=== PATIENT | male | born 1950 | race Caucasian/White ===

== ENCOUNTER → 2017-09-27 | Outpatient (CLI) | payer MEDICARE, MEDICAID ==
[~2017-09-27] MED LIST: ALBUAER3 IN; LISI-646 PO; SERT-275 PO; SIMV80TA73 PO
[2017-09-27 10:02] LABS: Urine Bacteria NONE SEEN /hpf (None Seen); Urine Blood TRACE /uL (Negative); Urine Mucus FEW (None Seen); Urine Specific Gravity 1.026 (1.001-1.035); Urine WBC 5 /hpf (0 - 3)
[2017-09-27 10:03] LABS: Basophils # (auto) 0 uL; Basophils % (auto) 0.5 % (0.0-2.0); Eosinophils # (auto) 0.2 uL; Eosinophils % (auto) 2.4 % (0.0-7.0); Hematocrit 50.8 % (41.0-53.0); Hemoglobin 17.3 g/dL (13.5-17.5); Lymphocytes # (auto) 2.9 uL; Lymphocytes % (auto) 33.8 % (10.0-50.0); Mean Corpuscular Hemoglobin 33.2 pg (28.0-32.0); Mean Corpuscular Hgb Conc. 34.1 g/dL (32.0-36.0); Mean Corpuscular Volume 97.5 fL (80.0-100.0); Monocytes # (auto) 0.8 uL; Monocytes % (auto) 9.4 % (0.0-12.0); Neutrophils # (auto) 4.6 uL; Neutrophils % (auto) 53.9 % (37.0-80.0); Platelet Count (auto) 305 10^3/uL (140-450); Red Blood Cells 5.21 10^6/uL (4.5-5.90); Red Cell Distribution Width 14.6 % (11.8-14.3); White Blood Cell 8.6 10^3/uL (4.4-10.8)
[2017-09-27 10:27] LABS: Albumin 3.6 g/dL (3.4-5.0); BUN/Creatinine Ratio 16.5; Bilirubin, Total 0.7 mg/dL (0.2-1.0); Calcium 9.2 mg/dL (8.5-10.1); Potassium 4.1 mmol/L (3.5-5.1); Total Protein 7.6 g/dL (6.4-8.2)
== END | disposition home or self-care (01) ==
LOC: LAB 09:23
PROVIDERS: ATTEND Family Medicine
DX: I10 Essential (primary) hypertension (principal); N40.0 Benign prostatic hyperplasia without lower urinary tract symptoms; N39.0 Urinary tract infection, site not specified; F17.200 Nicotine dependence, unspecified, uncomplicated; E78.5 Hyperlipidemia, unspecified
CPT/HCPCS: 36415; 80053; 80061; 81001; 84153; 85025

== ENCOUNTER 2017-10-18 10:31 | Emergency (ER) | payer MEDICAID, MEDICARE ==
[~2017-10-18] VITALS: Ht 175.3 cm; Wt 102.1 kg
[2017-10-18] MEDS ORDERED: SODIUM CHLORIDE 0.9% 1,000 ML IV ONE (11:28)
[2017-10-18] MEDS ORDERED: NALBUPHINE HCL 10 MG/1ml INJECTION IV ONE (11:30)
[2017-10-18] MEDS ORDERED: METOCLOPRAMIDE HCL 5MG/ml INJ 2ml VIAL IV ONE (11:30)
[2017-10-18 12:04] LABS: Basophils # (auto) 0 uL; Basophils % (auto) 0.3 % (0.0-2.0); Eosinophils # (auto) 0.1 uL; Eosinophils % (auto) 0.6 % (0.0-7.0); Hemoglobin 17.2 g/dL (13.5-17.5); Lymphocytes # (auto) 1.7 uL; Mean Corpuscular Hemoglobin 32.6 pg (28.0-32.0); Mean Corpuscular Hgb Conc. 33.1 g/dL (32.0-36.0); Mean Corpuscular Volume 98.5 fL (80.0-100.0); Monocytes # (auto) 0.8 uL; Monocytes % (auto) 6.7 % (0.0-12.0); Neutrophils # (auto) 9.3 uL; Neutrophils % (auto) 78.4 % (37.0-80.0); Nucleated Red Blood Cells % 0.1 %; Platelet Count (auto) 318 10^3/uL (140-450); Red Blood Cells 5.28 10^6/uL (4.5-5.90); Red Cell Distribution Width 14.2 % (11.8-14.3); White Blood Cell 11.8 10^3/uL (4.4-10.8)
[2017-10-18 12:20] LABS: Albumin 3.5 g/dL (3.4-5.0); BUN/Creatinine Ratio 16.9; Calcium 8.5 mg/dL (8.5-10.1); Potassium 3.7 mmol/L (3.5-5.1)
[2017-10-18 12:22] LABS: Bilirubin, Total 0.7 mg/dL (0.2-1.0); Total Protein 7.5 g/dL (6.4-8.2)
[2017-10-18] MEDS ORDERED: LABETALOL HCL 5 MG/ML ML 20ML VIAL IV ONE ×2 (12:22→12:30)
[2017-10-18] MEDS ORDERED: hydrALAZINE HCL 20 MG/ML VL IV ONE (13:00)
[2017-10-18 13:02] LABS: INR 0.96 (0.9-1.15); Partial Thromboplastin Time 25.8 sec (22.64-33.71); Prothrombin Time 10.5 sec (9.37-12.3)
[2017-10-18 13:46] VITALS: BP 153/88
== END 2017-10-18 14:16 | disposition short-term general hospital (02) ==
LOC: ER 10:31 → EDBD 10:31 → EDSEX 10:31 → ER 14:16
DX: I60.7 Nontraumatic subarachnoid hemorrhage from unspecified intracranial artery (principal); R73.9 Hyperglycemia, unspecified; I10 Essential (primary) hypertension; F17.210 Nicotine dependence, cigarettes, uncomplicated
CPT/HCPCS: 36415; 70450; 71045; 80053; 83735; 84443; 85025; 85610; 85730; 93005; 96374; 96375; 99291; J0360; J2300; J2765; J7030

== ENCOUNTER 2017-11-12 12:15 | Emergency (ER) | payer MEDICARE ==
[~2017-11-12] VITALS: Ht 175.3 cm; Wt 90.7 kg
[2017-11-12] MEDS ORDERED: HYDROcodone-ACET 10/325MG TAB PO ONE (13:00)
[2017-11-12 13:08] VITALS: BP 141/80
== END 2017-11-12 14:39 | disposition home or self-care (01) ==
LOC: ER 12:16
DX: G43.001 Migraine without aura, not intractable, with status migrainosus (principal); F17.210 Nicotine dependence, cigarettes, uncomplicated; E78.5 Hyperlipidemia, unspecified; I10 Essential (primary) hypertension
CPT/HCPCS: 70450; 93005

== ENCOUNTER 2018-02-15 06:04 | Day surgery (SDC) | payer MEDICARE ==
[2018-02-13 12:58] LABS: Basophils # (auto) 0 uL; Basophils % (auto) 0.3 % (0.0-2.0); Eosinophils # (auto) 0.2 uL; Eosinophils % (auto) 2.3 % (0.0-7.0); Hematocrit 47.9 % (41.0-53.0); Hemoglobin 16.1 g/dL (13.5-17.5); Lymphocytes # (auto) 2.9 uL; Lymphocytes % (auto) 34.6 % (10.0-50.0); Mean Corpuscular Hemoglobin 33.2 pg (28.0-32.0); Mean Corpuscular Hgb Conc. 33.6 g/dL (32.0-36.0); Mean Corpuscular Volume 98.8 fL (80.0-100.0); Monocytes # (auto) 0.7 uL; Monocytes % (auto) 8.6 % (0.0-12.0); Neutrophils # (auto) 4.6 uL; Neutrophils % (auto) 54.2 % (37.0-80.0); Nucleated Red Blood Cells % 0.1 %; Platelet Count (auto) 358 10^3/uL (140-450); Red Blood Cells 4.84 10^6/uL (4.5-5.90); Red Cell Distribution Width 14.3 % (11.8-14.3); White Blood Cell 8.4 10^3/uL (4.4-10.8)
[2018-02-13 13:13] LABS: INR 0.89 (0.9-1.15); Partial Thromboplastin Time 27.1 sec (23.78-33.04); Prothrombin Time 9.6 sec (9.27-12.13)
[2018-02-13 13:16] LABS: Albumin 3.5 g/dL (3.4-5.0); BUN/Creatinine Ratio 22.4; Bilirubin, Total 0.5 mg/dL (0.2-1.0); Calcium 8.7 mg/dL (8.5-10.1); Potassium 4.4 mmol/L (3.5-5.1); Total Protein 7.7 g/dL (6.4-8.2); Urine WBC 2154 /hpf (0 - 3); Urine WBC Clumps PRESENT /hpf (None Seen)
[2018-02-13 13:46] LABS: Urine Blood Trace /uL (Negative)
[2018-02-13 13:47] LABS: Urine Bacteria Moderate /hpf (None Seen)
[~2018-02-15] VITALS: Ht 175.3 cm; Wt 98.9 kg
[2018-02-15] MEDS ORDERED: ceFAZolin 1GM/50ML 50 ML IV ONE (07:10)
[2018-02-15] MEDS ORDERED: MIDAZOLAM HCL 1MG/1ML-2 ML VIAL ONE (07:37)
[2018-02-15] MEDS ORDERED: fentaNYL CITRATE 100 MCG/2 ML VL ONE (07:37)
[2018-02-15] MEDS ORDERED: ROCURONIUM 10MG/ML 10ML VIAL IV ONE (07:38)
[2018-02-15] MEDS ORDERED: PROPOFOL 10 MG/ML 20 ML IV ONE (07:38)
[2018-02-15] MEDS ORDERED: hydrALAZINE HCL 20 MG/ML VL IV PRN (08:30)
[2018-02-15] MEDS ORDERED: ePHEDrine SULFATE 50 MG/ML AMP IV PRN (08:30)
[2018-02-15] MEDS ORDERED: ONDANSETRON HCL 4 MG/2 ML VIAL IV ONE (08:30)
[2018-02-15] MEDS ORDERED: fentaNYL CITRATE 100 MCG/2 ML VL IV ONE (09:00)
[2018-02-15 09:20] VITALS: BP 137/86
== END 2018-02-15 09:26 | disposition home or self-care (01) ==
LOC: SUR 06:04
PROVIDERS: ATTEND Urology
DX: N35.9 Urethral stricture, unspecified (principal); I10 Essential (primary) hypertension; J44.9 Chronic obstructive pulmonary disease, unspecified; E78.00 Pure hypercholesterolemia, unspecified; K21.9 Gastro-esophageal reflux disease without esophagitis; F17.210 Nicotine dependence, cigarettes, uncomplicated; Z79.82 Long term (current) use of aspirin; Z79.899 Other long term (current) drug therapy; Z98.890 Other specified postprocedural states; Z68.32 Body mass index [BMI] 32.0-32.9, adult
CPT/HCPCS: 36415; 52276; 80053; 81001; 85025; 85610; 85730; C1769; J0690; J2250; J2704; J3010

== ENCOUNTER → 2018-03-22 | Outpatient (CLI) | payer MEDICARE | END | disposition home or self-care (01) | LOC: LAB 15:07 | PROVIDERS: ATTEND Urology | DX: N39.0 Urinary tract infection, site not specified (principal); Z87.891 Personal history of nicotine dependence | CPT/HCPCS: 87086; 87088; 87186 ==

== ENCOUNTER → 2018-04-06 | Outpatient (CLI) | payer MEDICARE | END | disposition home or self-care (01) | LOC: LAB 10:25 | PROVIDERS: ATTEND Urology | DX: N35.919 Unspecified urethral stricture, male, unspecified site (principal); Z79.899 Other long term (current) drug therapy | CPT/HCPCS: 87086; 87088; 87186 ==

== ENCOUNTER → 2018-04-26 | Outpatient (CLI) | payer MEDICARE | END | disposition home or self-care (01) | LOC: LAB 13:38 | PROVIDERS: ATTEND Urology | DX: N39.0 Urinary tract infection, site not specified (principal) | CPT/HCPCS: 87086 ==

== ENCOUNTER → 2018-05-17 | Outpatient (CLI) | payer MEDICARE ==
[2018-05-17 09:39] LABS: Basophils # (auto) 0.1 uL; Basophils % (auto) 0.7 % (0.0-2.0); Eosinophils # (auto) 0.2 uL; Eosinophils % (auto) 2.2 % (0.0-7.0); Hematocrit 47.2 % (41.0-53.0); Hemoglobin 15.8 g/dL (13.5-17.5); Lymphocytes % (auto) 34.2 % (10.0-50.0); Mean Corpuscular Hemoglobin 32.2 pg (28.0-32.0); Mean Corpuscular Hgb Conc. 33.5 g/dL (32.0-36.0); Mean Corpuscular Volume 95.9 fL (80.0-100.0); Monocytes # (auto) 0.9 uL; Monocytes % (auto) 10.1 % (0.0-12.0); Neutrophils # (auto) 4.6 uL; Neutrophils % (auto) 52.8 % (37.0-80.0); Platelet Count (auto) 328 10^3/uL (140-450); Red Blood Cells 4.92 10^6/uL (4.5-5.90); Red Cell Distribution Width 14.5 % (11.8-14.3); White Blood Cell 8.7 10^3/uL (4.4-10.8)
[2018-05-17 09:43] LABS: Urine Bacteria NONE SEEN /hpf (None Seen); Urine Blood 1+ /uL (Negative); Urine Hyaline Cast MOD /lpf (0 - 2); Urine Mucus FEW (None Seen); Urine Specific Gravity 1.021 (1.001-1.035); Urine WBC 3149 /hpf (0 - 3)
[2018-05-17 10:07] LABS: Potassium 4.1 mmol/L (3.5-5.1)
[2018-05-17 10:20] LABS: Albumin 3.3 g/dL (3.4-5.0); BUN/Creatinine Ratio 18.4; Bilirubin, Total 0.5 mg/dL (0.2-1.0); Total Protein 7.3 g/dL (6.4-8.2)
== END | disposition home or self-care (01) ==
LOC: LAB 09:14
PROVIDERS: ATTEND Nurse Practitioner
DX: E78.5 Hyperlipidemia, unspecified (principal)
CPT/HCPCS: 36415; 80053; 80061; 81001; 85025

== ENCOUNTER 2018-05-21 01:39 | Emergency (ER) | payer MEDICARE ==
[~2018-05-21] VITALS: Ht 182.9 cm; Wt 104.3 kg
[2018-05-21 02:47] LABS: Basophils # (auto) 0 uL; Basophils % (auto) 0.5 % (0.0-2.0); Eosinophils # (auto) 0.2 uL; Eosinophils % (auto) 2.4 % (0.0-7.0); Hematocrit 45.9 % (41.0-53.0); Hemoglobin 15.3 g/dL (13.5-17.5); Lymphocytes # (auto) 2.5 uL; Lymphocytes % (auto) 31.2 % (10.0-50.0); Mean Corpuscular Hgb Conc. 33.4 g/dL (32.0-36.0); Mean Corpuscular Volume 95.7 fL (80.0-100.0); Monocytes # (auto) 0.8 uL; Monocytes % (auto) 10.1 % (0.0-12.0); Neutrophils # (auto) 4.5 uL; Neutrophils % (auto) 55.8 % (37.0-80.0); Platelet Count (auto) 294 10^3/uL (140-450); Red Cell Distribution Width 14.6 % (11.8-14.3)
[2018-05-21 03:11] LABS: INR 0.87 (0.9-1.15); Partial Thromboplastin Time 27.5 sec (23.78-33.04); Prothrombin Time 9.4 sec (9.27-12.13)
[2018-05-21 03:29] LABS: Alanine Aminotransferase 23 U/L (16-61); Albumin 3.2 g/dL (3.4-5.0); Anion Gap 4 (5-15); Aspartate Aminotransferase 12 U/L (15-37); Blood Urea Nitrogen 21 mg/dL (7-18); Calcium 8.6 mg/dL (8.5-10.1); Carbon Dioxide 24 mmol/L (21-32); Chloride 111 mmol/L (98-107); Glucose 100 mg/dL (74-106); Magnesium 2.3 mg/dL (1.6-2.6); Sodium 139 mmol/L (136-145)
[2018-05-21 03:34] LABS: Alkaline Phosphatase 94 U/L (45-117); Bilirubin, Total 0.2 mg/dL (0.2-1.0); GFR African American 144 mL/min; GFR Non-African American 119 mL/min; Total Protein 6.9 g/dL (6.4-8.2)
[2018-05-21 04:46] VITALS: BP 158/93
== END 2018-05-21 04:47 | disposition home or self-care (01) ==
LOC: EDBD 01:39 → ER 01:41
DX: I67.1 Cerebral aneurysm, nonruptured (principal); F17.210 Nicotine dependence, cigarettes, uncomplicated; I10 Essential (primary) hypertension; E78.5 Hyperlipidemia, unspecified; H54.8 Legal blindness, as defined in USA; Z87.440 Personal history of urinary (tract) infections
CPT/HCPCS: 36415; 70450; 80053; 83735; 83880; 84484; 85025; 85379; 85610; 85730

== ENCOUNTER → 2018-06-07 | Outpatient (CLI) | payer MEDICARE ==
[2018-06-07 15:26] LABS: Urine Bacteria MANY /hpf (None Seen); Urine Blood 1+ /uL (Negative); Urine Mucus FEW (None Seen); Urine Specific Gravity 1.024 (1.001-1.035); Urine WBC 131 /hpf (0 - 3)
== END | disposition home or self-care (01) ==
LOC: LAB 14:52
PROVIDERS: ATTEND Nurse Practitioner
DX: N39.0 Urinary tract infection, site not specified (principal)
CPT/HCPCS: 81001; 87086; 87088; 87186

== ENCOUNTER 2018-06-13 17:16 | Emergency (ER) | payer MEDICARE ==
[~2018-06-13] VITALS: Ht 175.3 cm; Wt 100.7 kg
[2018-06-13 17:27] VITALS: BP 165/77
[2018-06-13 18:25] LABS: Urine Amorphous Crystal FEW /hpf (None Seen); Urine Bacteria MANY /hpf (None Seen); Urine Blood TRACE /uL (Negative); Urine WBC 109 /hpf (0 - 3)
[2018-06-13 18:25] LABS: Basophils # (auto) 0 uL; Basophils % (auto) 0.4 % (0.0-2.0); Eosinophils # (auto) 0.2 uL; Eosinophils % (auto) 2.6 % (0.0-7.0); Hematocrit 48.3 % (41.0-53.0); Hemoglobin 16.1 g/dL (13.5-17.5); Lymphocytes # (auto) 2.5 uL; Lymphocytes % (auto) 28.9 % (10.0-50.0); Mean Corpuscular Hemoglobin 32.4 pg (28.0-32.0); Mean Corpuscular Hgb Conc. 33.3 g/dL (32.0-36.0); Mean Corpuscular Volume 97.4 fL (80.0-100.0); Neutrophils # (auto) 4.8 uL; Neutrophils % (auto) 56.1 % (37.0-80.0); Nucleated Red Blood Cells % 0.1 %; Platelet Count (auto) 365 10^3/uL (140-450); Red Blood Cells 4.95 10^6/uL (4.5-5.90); Red Cell Distribution Width 14.8 % (11.8-14.3); White Blood Cell 8.5 10^3/uL (4.4-10.8)
[2018-06-13 18:31] LABS: Alanine Aminotransferase 23 U/L (16-61); Albumin 3.4 g/dL (3.4-5.0); Anion Gap 8 (5-15); Aspartate Aminotransferase 13 U/L (15-37); BUN/Creatinine Ratio 18.2; Blood Urea Nitrogen 20 mg/dL (7-18); Calcium 8.6 mg/dL (8.5-10.1); Carbon Dioxide 28 mmol/L (21-32); Chloride 109 mmol/L (98-107); GFR African American 85 mL/min; GFR Non-African American 71 mL/min; Glucose 121 mg/dL (74-106); Potassium 5.1 mmol/L (3.5-5.1); Sodium 145 mmol/L (136-145)
[2018-06-13 18:37] LABS: Alkaline Phosphatase 105 U/L (45-117); Bilirubin, Total 0.2 mg/dL (0.2-1.0); Total Protein 7.3 g/dL (6.4-8.2)
== END 2018-06-13 20:01 | disposition left against medical advice (07) ==
LOC: ER 17:19
DX: N39.0 Urinary tract infection, site not specified (principal); Z53.21 Procedure and treatment not carried out due to patient leaving prior to being seen by health care provider
CPT/HCPCS: 36415; 80053; 81001; 84484; 85025

== ENCOUNTER → 2018-07-31 | Outpatient (CLI) | payer MEDICARE | END | disposition home or self-care (01) | LOC: LAB 12:30 | PROVIDERS: ATTEND Urology | DX: N39.0 Urinary tract infection, site not specified (principal) | CPT/HCPCS: 87086 ==

== ENCOUNTER → 2018-08-15 | Outpatient (CLI) | payer MEDICARE ==
[2018-08-15 08:44] LABS: Urine Amorphous Crystal FEW /hpf (None Seen); Urine Bacteria NONE SEEN /hpf (None Seen); Urine Blood Negative /uL (Negative); Urine Specific Gravity 1.013 (1.001-1.035); Urine WBC 2 /hpf (0 - 3)
[2018-08-15 08:45] LABS: Basophils # (auto) 0 uL; Basophils % (auto) 0.3 % (0.0-2.0); Eosinophils # (auto) 0.2 uL; Eosinophils % (auto) 1.6 % (0.0-7.0); Hematocrit 45.6 % (41.0-53.0); Hemoglobin 15.2 g/dL (13.5-17.5); Lymphocytes # (auto) 4.6 uL; Mean Corpuscular Hemoglobin 32.7 pg (28.0-32.0); Mean Corpuscular Hgb Conc. 33.4 g/dL (32.0-36.0); Monocytes # (auto) 1.3 uL; Monocytes % (auto) 9.4 % (0.0-12.0); Neutrophils # (auto) 7.4 uL; Neutrophils % (auto) 54.7 % (37.0-80.0); Nucleated Red Blood Cells % 0.1 %; Platelet Count (auto) 394 10^3/uL (140-450); Red Blood Cells 4.65 10^6/uL (4.5-5.90); Red Cell Distribution Width 15.1 % (11.8-14.3); White Blood Cell 13.5 10^3/uL (4.4-10.8)
[2018-08-15 09:01] LABS: Albumin 3.4 g/dL (3.4-5.0); BUN/Creatinine Ratio 22.6; Calcium 9.8 mg/dL (8.5-10.1); Potassium 4.9 mmol/L (3.5-5.1)
[2018-08-15 09:08] LABS: Bilirubin, Total 0.4 mg/dL (0.2-1.0); Total Protein 7.2 g/dL (6.4-8.2)
== END | disposition home or self-care (01) ==
LOC: LAB 08:25
PROVIDERS: ATTEND Nurse Practitioner
DX: E78.5 Hyperlipidemia, unspecified (principal)
CPT/HCPCS: 36415; 80053; 80061; 81001; 84443; 85025

== ENCOUNTER → 2019-03-19 | Outpatient (CLI) | payer MEDICARE ==
[2019-03-19 09:31] LABS: Basophils # (auto) 0.1 uL; Basophils % (auto) 0.8 % (0.0-2.0); Eosinophils # (auto) 0.2 uL; Eosinophils % (auto) 2.5 % (0.0-7.0); Hematocrit 46.2 % (41.0-53.0); Hemoglobin 15.5 g/dL (13.5-17.5); Lymphocytes # (auto) 2.2 uL; Lymphocytes % (auto) 26.3 % (10.0-50.0); Mean Corpuscular Hgb Conc. 33.5 g/dL (32.0-36.0); Mean Corpuscular Volume 95.5 fL (80.0-100.0); Monocytes # (auto) 0.7 uL; Monocytes % (auto) 8.8 % (0.0-12.0); Neutrophils # (auto) 5.2 uL; Neutrophils % (auto) 61.6 % (37.0-80.0); Nucleated Red Blood Cells % 0.1 %; Platelet Count (auto) 325 10^3/uL (140-450); Red Blood Cells 4.84 10^6/uL (4.5-5.90); Red Cell Distribution Width 16.3 % (11.8-14.3); White Blood Cell 8.5 10^3/uL (4.4-10.8)
[2019-03-19 09:48] LABS: INR < 0.93 (0.9-1.15); Partial Thromboplastin Time 25.4 sec (23.64-32.05)
[2019-03-19 10:09] LABS: BUN/Creatinine Ratio 19.1; Calcium 9.1 mg/dL (8.5-10.1); Potassium 4.2 mmol/L (3.5-5.1)
== END | disposition home or self-care (01) ==
LOC: LAB 09:20
DX: Z01.89 Encounter for other specified special examinations (principal); D68.9 Coagulation defect, unspecified; I67.1 Cerebral aneurysm, nonruptured; Z79.02 Long term (current) use of antithrombotics/antiplatelets
CPT/HCPCS: 36415; 80048; 85025; 85610; 85730

== ENCOUNTER 2019-07-18 13:26 | Inpatient (IN) | payer BC, MEDICARE ==
[~2019-07-18] VITALS: Ht 175.3 cm; Wt 100.5 kg
[2019-07-18 14:10] LABS: Basophils # (auto) 0.1 uL; Basophils % (auto) 0.6 % (0.0-2.0); Eosinophils # (auto) 0.2 uL; Eosinophils % (auto) 1.7 % (0.0-7.0); Hemoglobin 16.5 g/dL (13.5-17.5); Lymphocytes # (auto) 2.1 uL; Lymphocytes % (auto) 23.4 % (10.0-50.0); Mean Corpuscular Hemoglobin 32.5 pg (28.0-32.0); Mean Corpuscular Hgb Conc. 33.6 g/dL (32.0-36.0); Mean Corpuscular Volume 96.8 fL (80.0-100.0); Monocytes # (auto) 0.9 uL; Monocytes % (auto) 10.3 % (0.0-12.0); Neutrophils # (auto) 5.7 uL; Platelet Count (auto) 333 10^3/uL (140-450); Red Blood Cells 5.07 10^6/uL (4.5-5.90); Red Cell Distribution Width 15.2 % (11.8-14.3)
[2019-07-18 14:22] LABS: Albumin 3.5 g/dL (3.4-5.0); Anion Gap 5 (5-15); Blood Alcohol < 3.0 mg/dL (0-5); Blood Urea Nitrogen 15 mg/dL (7-18); Calcium 9.7 mg/dL (8.5-10.1); Carbon Dioxide 26 mmol/L (21-32); Chloride 107 mmol/L (98-107); Glucose 103 mg/dL (74-106); Magnesium 2.2 mg/dL (1.6-2.6); Potassium 3.7 mmol/L (3.5-5.1); Sodium 138 mmol/L (136-145)
[2019-07-18 14:27] LABS: Alanine Aminotransferase 19 U/L (16-61); Alkaline Phosphatase 95 U/L (45-117); Aspartate Aminotransferase 14 U/L (15-37); Bilirubin, Total 0.4 mg/dL (0.2-1.0); GFR African American 95 mL/min; GFR Non-African American 79 mL/min; Total Protein 7.8 g/dL (6.4-8.2)
[2019-07-18] MEDS ORDERED: LACTULOSE 20Gm/30ML SOLN PO PRN (16:30)
[2019-07-18] MEDS ORDERED: LABETALOL HCL 5 MG/ML ML 20ML VIAL IV PRN (16:30)
[2019-07-18] MEDS ORDERED: MORPHINE SULF INJ 2 MG/ML SYRINGE 1ML IV PRN (16:30)
[2019-07-18] MEDS ORDERED: traMADol HCL 50 MG TAB PO PRN (16:30)
[2019-07-18] MEDS ORDERED: NITROGLYCERIN 0.4 MG SL TAB SL PRN (16:30)
[2019-07-18] MEDS ORDERED: PROMETHAZINE HCL 25 MG/ML 1ML IV PRN (16:30)
[2019-07-18] MEDS ORDERED: ASPirin 81 mg TAB PO ONE (16:45)
[2019-07-18 18:22] LABS: Urine Bacteria NONE SEEN /hpf (None Seen); Urine Blood Negative /uL (Negative); Urine Mucus FEW (None Seen); Urine Specific Gravity 1.016 (1.001-1.035); Urine WBC 2 /hpf (0 - 3)
[2019-07-18 18:32] LABS: Alcohol, Urine < 3.0 mg/dL (0-5); Amphetamine Screen, Urine NEGATIVE (NEGATIVE); Barbiturate Scree,Urine NEGATIVE (NEGATIVE); Benzodiazephine Screen, Urine NEGATIVE (NEGATIVE); Cannabinoid Screen, Urine NEGATIVE (NEGATIVE); Cocaine Screen, Urine NEGATIVE (NEGATIVE); Opiate Scree,Urine NEGATIVE (NEGATIVE); Phencyclidine Screen, Urine NEGATIVE (NEGATIVE)
[2019-07-18] MEDS: ALBUTEROL SULF 2.5 MG/0.5ML(0.5%) NEB SOLN NEB SCH (19:05)
[2019-07-18 20:25] VITALS: BP 145/70
--- NOTE | 2019-07-18 20:25 | NUR ---
Telemetry admit from ER ROWEAN HO admitted to Telemetry unit. Patient oriented to ABDOULAYE BUTT O[facility], primary RN, unit, room, bed, and unit policies regarding patient care and visiting hours. Patient now on continuous telemetry monitoring, tele box #51 and telemetry reading on arrival to unit is sinus rhythm. Patient weighed by bedscale and encouraged to call if they need something. All questions and concerns addressed, patient verbalized understanding. Bed in lowest locked position, call light within reach, side rails up x2, fall precautions in place. Will continue to monitor Q1hr and PRN.
--- NOTE | 2019-07-18 20:45 | NUR ---
AMA to smoke ROWENA HO states they want to leave the floor Against Medical Advice (AMA) to go outside and smoke. Patient encouraged to stay on floor and not smoke. Patient advised of the risks and benefits of leaving AMA to smoke. Patient verbalized understanding and signed required AMA form. Patient informed to be back in 20 minutes, patient verbalized understanding.
--- NOTE | 2019-07-18 21:15 | NUR ---
Spoke with hospitalist Spoke with hospitalist in regards to patient complaining oh heart burn. Per hospitalist will take a look at patient's chart. Continue care.
[2019-07-18 22:00] VITALS: BP 145/70
[2019-07-18] MEDS: CALCIUM CARB 500 MG CHEW TAB PO PRN (22:12)
[2019-07-18] MEDS: ATORVASTATIN 20 MG TAB PO SCH (22:12)
[2019-07-19] MEDS: ALBUTEROL SULF 2.5 MG/0.5ML(0.5%) NEB SOLN NEB SCH ×4 (00:57→19:28)
--- NOTE | 2019-07-19 01:06 | NUR ---
ER CALLED NEURO CONSULT WITH DR. CLARK.
[2019-07-19 03:49] VITALS: BP 145/70
[2019-07-19 05:00] VITALS: BP 141/78
--- NOTE | 2019-07-19 07:45 | NUR ---
OPENING SHIFT NOTE: PATIENT RESTING IN BED. A/OX4. PATIENT ABLE TO GRASP BOTH HANDS FIRMLY, SLIGHTLY LESS STRENGTH NOTED IN LEFT HAND GRASP, WELL LEFT LEG DECREASED IN RESISTANCE. PATIENT SPEECH CLEAR, VERY MILD STUTTERING NOTED, PATIENT REPORTS SYMPTOMS GETTING BETTER. PATIENT UPDATED ON PLAN OF CARE, AND IS COMPLIANT AND ACTIVE IN LEARNING/PARTICIPATION. RESPIRATIONS EVEN AND UNLABORED. FALL PRECAUTIONS IN PLACE, SMOKING CESSATION EDUCATION GIVEN. CALL LIGHT WITHIN REACH. WILL CONTINUE TO MONITOR.
[2019-07-19 09:00] VITALS: BP_SYST 107; BP_SYST 129; BP_DIAS 73; BP_DIAS 95
[2019-07-19] MEDS ORDERED: LORazepam 2MG/ML-1ML VIAL IV PRN (09:15)
[2019-07-19] MEDS: ASPirin 81 mg TAB PO SCH (10:27)
[2019-07-19] MEDS: SERTRALINE HCL 50 MG TAB PO SCH (10:27)
[2019-07-19] MEDS: ENOXAPARIN SOD 40 MG/0.4 ML SYRINGE SC SCH (10:29)
[2019-07-19] MEDS: LISINOPRIL 20 MG TAB PO SCH (10:29)
--- NOTE | 2019-07-19 11:00 | NUR ---
PATIENT'S FAMILY BROUGHT IN STENT/BRAIN COIL ID. COPIED MADE AND PLACED IN HARD CHART. THIS RN LEFT MRI VOICEMAIL.
--- NOTE | 2019-07-19 12:15 | NUR ---
MD CHEYENNE FERREIRA.
[2019-07-19 13:00] VITALS: BP 128/72
--- NOTE | 2019-07-19 13:45 | NUR ---
PATIENT STENT INFORMATION GIVEN TO DONG IN MRI. STENT INFORMATION TO BE OBTAINED, HOWEVER COILING RECORDS ARE FROM MARNE. WILL INFORM MD OF SITUATION.
--- NOTE | 2019-07-19 13:49 | NUR ---
MD QUINN MADE AWARE OF MRI PROCEDURE TO BE CANCELLED DUE TO BRAIN COILING. MD QUINN INFORMED THIS RN THAT PATIENT IS WALKING AND SYMPTOMS ARE NOT PROGRESSING, TO COMMUNICATE WITH MD CLARK ON PLAN OF CARE.
[2019-07-19] MEDS: ACETAMINOPHEN 500 MG TAB PO PRN (15:56)
--- NOTE | 2019-07-19 15:57 | NUR ---
PATIENT REPORTING MILD HEADACHE. TYLENOL ADMINISTERED ORDERED.
[2019-07-19 17:00] VITALS: BP 140/83
--- NOTE | 2019-07-19 18:13 | NUR ---
PATIENT AMA TO SMOKE.
[2019-07-19] MEDS: CALCIUM CARB 500 MG CHEW TAB PO PRN (20:51)
[2019-07-19] MEDS: ATORVASTATIN 20 MG TAB PO SCH (20:52)
[2019-07-19 23:23] VITALS: BP 136/75
[2019-07-20] MEDS: ALBUTEROL SULF 2.5 MG/0.5ML(0.5%) NEB SOLN NEB SCH ×4 (00:33→19:00)
--- NOTE | 2019-07-20 01:20 | NUR ---
CARE ENDORSED TO NOMI TOWNSEND.
[2019-07-20 05:20] VITALS: BP 144/88
[2019-07-20] MEDS ORDERED: SODIUM CHLORIDE 0.9 % NEB SOLN 3ML NEB ONE (05:40)
[2019-07-20 09:00] VITALS: BP 140/68
[2019-07-20] MEDS: SERTRALINE HCL 50 MG TAB PO SCH (10:00)
--- NOTE | 2019-07-20 11:02 | NUR ---
Dr. Issa At bedside discussing POC with patient. possible D/C tomorrow after Dr. Perez follows up with patient.
[2019-07-20] MEDS ORDERED: SERTRALINE HCL 50 MG TAB PO ONE (11:15)
[2019-07-20] MEDS: ASPirin 81 mg TAB PO SCH (11:24)
[2019-07-20] MEDS: LISINOPRIL 20 MG TAB PO SCH (11:25)
[2019-07-20] MEDS: ENOXAPARIN SOD 40 MG/0.4 ML SYRINGE SC SCH (11:26)
--- NOTE | 2019-07-20 11:41 | NUR ---
EEG- unable to complete exam due to artifacts. Patient was restless and stated that he had back pain.
[2019-07-20 12:58] VITALS: BP 134/85
--- NOTE | 2019-07-20 15:16 | NUR ---
Assumed pt Care Assumed pt care from Zoë. Pt is a/ox4 with no s/s of distress or SOB. Pt is currently laying in bed with no complaints at this time. Safety measures maintained with call light within reach, bed in lowest position and side rails up. Will continue to monitor for changes q1hr and prn.
[2019-07-20 17:00] VITALS: BP 146/76
--- NOTE | 2019-07-20 19:45 | NUR ---
Opening Shift Note Assumed care of patient, AOX4. No S/S of distress/SOB. Fall and safety precautions in place. Call light within reach and able to use. Instructed on POC and to call for assist PRN, will continue to monitor for changes Q1hr and PRN.
[2019-07-20] MEDS: ATORVASTATIN 20 MG TAB PO SCH (21:20)
[2019-07-20] MEDS: CALCIUM CARB 500 MG CHEW TAB PO PRN (21:21)
--- NOTE | 2019-07-20 21:36 | NUR ---
PT OFF UNIT PATIENT EDUCATED OF RISKS/CONSEQUENCES OF LEAVING AMA OFF UNIT. PATIENT VERBALIZED UNDERSTANDING AND STATES, "YEAH I KNOW, I'LL BE OKAY. I WON'T BE TOO LONG AND I KNOW HOW TO GET BACK UP". PATIENT LEAVING AT THIS TIME. WILL CONTINUE TO MONITOR.
--- NOTE | 2019-07-20 21:49 | NUR ---
PATIENT RETURNS TO UNIT PATIENT RETURNS TO UNIT AT THIS TIME. PATIENT NOW RESTING IN BED. BED LOCKED IN LOWEST POSITION AND SIDE RAILS UP X2. WILL CONTINUE TO MONITOR.
[2019-07-20] MEDS: ACETAMINOPHEN 500 MG TAB PO PRN (22:01)
[2019-07-20 22:38] VITALS: BP 153/72
--- NOTE | 2019-07-20 23:30 | NUR ---
TELE CALL RECEIVED NOTIFICATION THAT DIRECTOR OF MARKETING OPERATIONS CALLED REGARDING ABNORMAL CARDIAC RHYTHM, HEART RATE GOING FROM 49 TO 140'S AFIB. UPON ENTERING ROOM, PATIENT ASLEEP, AWAKEN TO VOICE. DENIES CHEST PAIN, NAUSEA, ANY OTHER S/S. VITALS TAKEN BP 120/54; HEART RATE 55; OXYGEN SATURATION 96% ON ROOM AIR. PATIENT PLACED ON 2L NC OXYGEN. EKG TAKEN OF PATIENT READS SINUS RHYTHM. WILL NOTIFY ON-CALL HOSPITALIST. Addendum: 07/21/19 at 0023 by KATELIN GALINDO RN RN WRONG PATIENT
--- NOTE | 2019-07-21 00:02 | NUR ---
PT REFUSED [place], NO SOB NOTED
[2019-07-21 06:04] VITALS: BP 142/79
[2019-07-21] MEDS: ALBUTEROL SULF 2.5 MG/0.5ML(0.5%) NEB SOLN NEB SCH ×5 (06:33→22:49)
--- NOTE | 2019-07-21 07:29 | NUR ---
Opening Note Assumed pt care from NOC nurse. Pt is a/ox4 with no s/s of distress or SOB. Pt is currently laying in bed with no complaints at this time. Discussed POC with pt and pending neurology clearance and possible d/c; pt verbalized understanding. Safety measures maintained with call light within reach, bed in lowest position and side rails up. Will continue to monitor for changes q1hr and prn.
[2019-07-21 08:43] VITALS: BP 138/81
[2019-07-21] MEDS: SERTRALINE HCL 50 MG TAB PO SCH (08:49)
[2019-07-21] MEDS: ASPirin 81 mg TAB PO SCH (08:49)
[2019-07-21] MEDS: ENOXAPARIN SOD 40 MG/0.4 ML SYRINGE SC SCH (08:50)
[2019-07-21] MEDS: LISINOPRIL 20 MG TAB PO SCH (08:50)
--- NOTE | 2019-07-21 10:56 | NUR ---
Dr Issa at Bedside MD to see pt. requests that Dr Perez f/u and read EEG on pt for clearance to d/c. Per MD, if Neuro clears pt, to call him for d/c orders. Will implement and continue to monitor.
--- NOTE | 2019-07-21 11:31 | NUR ---
EEG Update Per ct mri technologist, the pt did not complete the EEG due to artifact and restlessness. Spoke with Dr Issa about the test not being complete; requests that the test be complete today for Dr Perez to interpret. Will call EEG techs to inform.
--- NOTE | 2019-07-21 11:40 | NUR ---
senior manufacturing engineer at Bedside Tech at bedside. Pt aware of need to stay still for exam and agreed to stay still. Addendum: 07/21/19 at 1237 by SARA RÍOS RN RN EEG COMPLETE. Tech stated that they were able to complete the test and that he would call Dr Perez for a read. Will continue to monitor.
--- NOTE | 2019-07-21 12:41 | NUR ---
EEG- ELECTROENCEPHALOGRAM COMPLETED ON 07/21/2019.
[2019-07-21 13:00] VITALS: BP 143/75
--- NOTE | 2019-07-21 13:17 | NUR ---
Nutrition Assessment Notes Please refer to link for full assessment notes Est energy needs: [id number] kcals (23-25 kcal/kgBW) Est protein needs: 72-90 gms/day (0.8-1.0 gm/kgBW) Will continue to monitor and reassess prn Addendum: 07/21/19 at [address] Amended: Links added.
[2019-07-21 16:58] VITALS: BP 146/78
--- NOTE | 2019-07-21 19:10 | NUR ---
DR CLARK AT BEDSIDE
--- NOTE | 2019-07-21 19:30 | NUR ---
Opening Shift Note Assumed care of patient, AOX4. No S/S of distress/SOB or pain. Fall and safety precautions in place. Call light within reach and able to use. Instructed on plan of care and to call for assist PRN. Patient in agreement and verbalized understanding. Will continue to monitor for changes Q1hr and PRN.
--- NOTE | 2019-07-21 21:02 | NUR ---
PATIENT OFF UNIT RISKS/CONSEQUENCES DISCUSSED OFF WALKING OFF UNIT. PATIENT VERBALIZED UNDERSTANDING AND CONTINUES TO WISH TO GO OFF UNIT. AMA SIGNED IN CHART. WILL CONTINUE TO MONITOR.
--- NOTE | 2019-07-21 21:13 | NUR ---
PATIENT RETURNS TO UNIT PATIENT RETURNS TO BED IN ROOM ON UNIT AT THIS TIME. PATIENT NOW RESTING IN BED. BED LOCKED IN LOWEST POSITION WITH SIDE RAILS UP X2. WILL CONTINUE TO MONITOR.
--- NOTE | 2019-07-21 22:00 | NUR ---
HIGH BP BP RIGHT ARM SEMI-FOWLERS 173/81 MM HG. PATIENT GIVEN TYLENOL FOR 5/10 CHRONIC HEADACHE (SEE EMAR); IN NO OTHER S/S OF DISTRESS AT THIS TIME. PATIENT EDUCATED ON BLOOD PRESSURE AND REASON FOR MEDICATION ADMINISTRATION (SEE EMAR). HEAD OF THE BED LOWERED. WILL CONTINUE TO MONITOR.
[2019-07-21] MEDS: ATORVASTATIN 20 MG TAB PO SCH (22:03)
[2019-07-21] MEDS: CALCIUM CARB 500 MG CHEW TAB PO PRN (22:04)
[2019-07-21] MEDS: ACETAMINOPHEN 500 MG TAB PO PRN (22:04)
--- NOTE | 2019-07-21 23:00 | NUR ---
BP RECHECK BP 133/59; HEART RATE 68. PATIENT IN NO S/S OF DISTRESS, RESTING IN BED. WILL CONTINUE TO MONITOR.
[2019-07-22 05:34] VITALS: BP 142/82
[2019-07-22] MEDS: ALBUTEROL SULF 2.5 MG/0.5ML(0.5%) NEB SOLN NEB SCH ×2 (06:50→11:52)
--- NOTE | 2019-07-22 08:35 | NUR ---
OPENING SHIFT NOTE: PATIENT RESTING IN BED. A/OX4. PATIENT SPEECH CLEAR. UPDATED ON PLAN OF CARE FOR REPEAT HEAD CT AND ECHO RESULTS PENDING. RESPIRATIONS EVEN AND UNLABORED. FALL PRECAUTIONS IN PLACE, SMOKING CESSATION EDUCATION GIVEN. PATIENT REPORTS HE IS OUT OF CIGARETTES AND IS NOT GOING TO BUY ANOTHER PACK. CALL LIGHT WITHIN REACH. WILL CONTINUE TO MONITOR.
[2019-07-22 09:00] VITALS: BP 123/75
[2019-07-22 10:19] VITALS: BP 123/75
[2019-07-22] MEDS: ENOXAPARIN SOD 40 MG/0.4 ML SYRINGE SC SCH (10:36)
[2019-07-22] MEDS: SERTRALINE HCL 50 MG TAB PO SCH (10:36)
[2019-07-22] MEDS: LISINOPRIL 20 MG TAB PO SCH (10:36)
[2019-07-22] MEDS: ASPirin 81 mg TAB PO SCH (10:36)
--- NOTE | 2019-07-22 10:37 | NUR ---
DIALYSIS COMPLETE: 3L OFF LAST BP 115/51 HR 62. PATIENT TOLERATED WELL. Addendum: 07/22/19 at 1411 by SAI BATES RN RN MISTAKEN ENTRY
[2019-07-22 12:26] VITALS: BP 123/75
[2019-07-22 13:00] VITALS: BP 138/68
[2019-07-22 13:34] VITALS: BP 123/75
--- NOTE | 2019-07-22 14:11 | NUR ---
PATIENT DISCHARGED: ALL EDUCATION MATERIALS GIVEN TO PATIENT. EDUCATED ON FOLLOW UP APPOINTMENT AND TO REQUEST REFERRAL TO [facility] WELL ECHO RESULTS. IV REMOVED, CATHETER INTACT. TELE BOX RETURNED TO CARDIO UNIT. PATIENT LEFT WITH ALL BELONGINGS TO PRIVATE AUTO WITHOUT INCIDENCE, RESPIRATIONS EVEN AND UNLABORED.
--- NOTE | 2019-07-22 16:08 | NUR ---
Assessment Pt is a 68 year old alert and oriented male. Prior to admit, pt lived with his , Amna, who is his emergency contact at [phone]. Prior to admit, pt used no DME, was ambulatory and was independent with ADL's. Pt's Primary is Dr. Ann, has an AD but not on file, and gets [employer] income. Pt stated that he was admitted due to a "mini-stroke" but that he is back to normal functioning. Pt will d/c home once medically stable. Pt was agreeable and understanding. Pt's will transport him home upon d/c. No needs assessed at this time. Addendum: 07/22/19 at 1612 by GRAY NELSON Amended: Links added.
== END 2019-07-22 14:10 | disposition home or self-care (01) | DRG 65 ==
LOC: ER 13:26 → TELE 13:27 → TELE-WESTW 20:22
PROVIDERS: ADMIT Internal Medicine; ATTEND Family Medicine
DX: I63.511 Cerebral infarction due to unspecified occlusion or stenosis of right middle cerebral artery (principal); G81.94 Hemiplegia, unspecified affecting left nondominant side; I10 Essential (primary) hypertension; H54.61 Unqualified visual loss, right eye, normal vision left eye; J44.9 Chronic obstructive pulmonary disease, unspecified; E78.00 Pure hypercholesterolemia, unspecified; E66.9 Obesity, unspecified; N40.0 Benign prostatic hyperplasia without lower urinary tract symptoms; K57.90 Diverticulosis of intestine, part unspecified, without perforation or abscess without bleeding; I25.10 Atherosclerotic heart disease of native coronary artery without angina pectoris; F17.210 Nicotine dependence, cigarettes, uncomplicated; E78.5 Hyperlipidemia, unspecified; I67.1 Cerebral aneurysm, nonruptured; G56.03 Carpal tunnel syndrome, bilateral upper limbs; Z79.899 Other long term (current) drug therapy; Z90.49 Acquired absence of other specified parts of digestive tract; Z79.82 Long term (current) use of aspirin; Z68.32 Body mass index [BMI] 32.0-32.9, adult
CPT/HCPCS: 36415; 70450; 71045; 80053; 80307; 80320; 81001; 82550; 83735; 84484; 85025; 85652; 93005; 93306; 93886; 94640; 95819; 97163; G0378

== ENCOUNTER 2019-08-01 14:51 | Emergency (ER) | payer BC ==
[~2019-08-01] VITALS: Ht 175.3 cm; Wt 99.3 kg
[2019-08-01 16:04] LABS: Basophils # (auto) 0 uL; Basophils % (auto) 0.5 % (0.0-2.0); Eosinophils # (auto) 0.2 uL; Eosinophils % (auto) 3.7 % (0.0-7.0); Hematocrit 50.4 % (41.0-53.0); Hemoglobin 16.6 g/dL (13.5-17.5); Lymphocytes # (auto) 1.8 uL; Lymphocytes % (auto) 31.6 % (10.0-50.0); Mean Corpuscular Hemoglobin 31.9 pg (28.0-32.0); Mean Corpuscular Hgb Conc. 32.9 g/dL (32.0-36.0); Mean Corpuscular Volume 96.9 fL (80.0-100.0); Monocytes # (auto) 0.9 uL; Monocytes % (auto) 16.7 % (0.0-12.0); Neutrophils # (auto) 2.7 uL; Neutrophils % (auto) 47.5 % (37.0-80.0); Nucleated Red Blood Cells % 0.1 %; Platelet Count (auto) 285 10^3/uL (140-450); Red Cell Distribution Width 15.3 % (11.8-14.3); White Blood Cell 5.6 10^3/uL (4.4-10.8)
[2019-08-01 16:20] LABS: Albumin 3.3 g/dL (3.4-5.0); Anion Gap 8 (5-15); Blood Urea Nitrogen 18 mg/dL (7-18); Carbon Dioxide 22 mmol/L (21-32); Chloride 107 mmol/L (98-107); Glucose 84 mg/dL (74-106); Magnesium 2.5 mg/dL (1.6-2.6); Potassium 4.2 mmol/L (3.5-5.1); Sodium 137 mmol/L (136-145)
[2019-08-01 16:26] LABS: Alanine Aminotransferase 22 U/L (16-61); Alkaline Phosphatase 91 U/L (45-117); Aspartate Aminotransferase 20 U/L (15-37); BUN/Creatinine Ratio 19.6; Bilirubin, Total 0.2 mg/dL (0.2-1.0); GFR African American 105 mL/min; GFR Non-African American 86 mL/min; Total Protein 7.9 g/dL (6.4-8.2)
[2019-08-01 20:09] VITALS: BP 141/80
== END 2019-08-01 20:13 | disposition home or self-care (01) ==
LOC: ER 14:51
DX: J20.9 Acute bronchitis, unspecified (principal); I10 Essential (primary) hypertension; E78.5 Hyperlipidemia, unspecified; Z87.442 Personal history of urinary calculi
CPT/HCPCS: 36415; 36600; 71046; 80053; 82805; 83605; 83735; 83880; 84484; 85025; 85379; 87040; 93005

== ENCOUNTER 2023-08-14 13:58 | Emergency (ER) | payer BC ==
[~2023-08-14] VITALS: Ht 175.3 cm; Wt 96.1 kg
[~2023-08-14 13:58] MED LIST changes: -LISI-646 PO; +LISI20TA56 PO; -SERT-275 PO; +SERT25TA28 PO; +SIMV80TA17 PO; -SIMV80TA73 PO
[2023-08-14 14:02] VITALS: TEMP 98.1
[2023-08-14 14:09] VITALS: BP 111/72
[2023-08-14 17:21] VITALS: PULSE 83; RESP 15; O2SAT 96
[2023-08-14] MEDS ORDERED: AMOX875T4 PO (17:35)
== END 2023-08-14 17:36 | disposition home or self-care (01) ==
LOC: ER 13:58
DX: K04.7 Periapical abscess without sinus (principal); I10 Essential (primary) hypertension; E78.5 Hyperlipidemia, unspecified; F17.210 Nicotine dependence, cigarettes, uncomplicated; Z90.49 Acquired absence of other specified parts of digestive tract; Z79.899 Other long term (current) drug therapy
CPT/HCPCS: 41800